=== PATIENT | female | born 1990 | race Caucasian/White ===

== ENCOUNTER 2021-01-29 07:36 | Emergency (ER) | payer BC, OTHER ==
[2021-01-29 07:40] VITALS: BP 154/99; PULSE 70; RESP 18; TEMP 97.1
[2021-01-29] MEDS ORDERED: ACET/COD 300 MG/30 MG STARTER PACK 6 TAB BTL PO STA (07:46)
--- NOTE | 2021-01-29 07:51 | ED ---
ENT HPI - General Chief complaint: Dental/Oral Stated complaint: dental infection Time Seen by Provider: 01/29/21 07:40 Source: patient, RN notes reviewed Mode of arrival: ambulatory Limitations: no limitations - History of Present Illness Initial comments: Patient is a 30-year-old female presenting ED for tooth pain. Patient states that starting yesterday right upper tooth pain started. Patient woke up this morning with increased pressure sinus area to same side. Patient is currently under care with dental, plan is to have all upper teeth removed, with dentures moving forward. Patient states that next appointment is not until the end of March. Patient states no associated pain with any other teeth or lower jaw. Patient reports a decrease in oral intake due to pain. She denies any fever or nausea vomiting at this time. - Related Data Home Medications Medication Instructions Recorded Confirmed Albuterol Inhaler (Mhu) [Ventolin 1 puff INHALATION RT-Q6H PRN 12/07/15 12/07/15 Hfa Inhaler] Buprenorphine HCl/Naloxone HCl 1 film SUBLINGUAL BID 12/07/15 12/07/15 [Suboxone 2 mg-0.5 mg Sl Film] Previous Rx's Medication Instructions Recorded Fluconazole [Diflucan] 150 mg PO ONCE #1 tab 12/07/15 Ibuprofen [Motrin] 600 mg PO Q8HR PRN #20 tab 01/29/21 Penicillin V Potassium [Pen Vee K] 500 mg PO QID #40 tablet 01/29/21 Allergies Allergy/AdvReac Type Severity Reaction Status Date / Time No Known Allergies Allergy Verified 01/29/21 07:40 Review of Systems ROS Statement: Those systems with pertinent positive or pertinent negative responses have been documented in the HPI. ROS Other: All systems not noted in ROS Statement are negative. Past Medical History Additional Past Medical History / Comment(s): headaches History of Any Multi-Drug Resistant Organisms: None Reported Past Surgical History: Section, Tubal Ligation Past Psychological History: No Psychological Hx Reported Smoking Status: Current every day smoker Past Alcohol Use History: None Reported Past Drug Use History: Marijuana General Exam Limitations: no limitations General appearance: alert, in no apparent distress Head exam: Present: atraumatic, normocephalic, normal inspection Eye exam: Present: normal appearance, PERRL, EOMI. Absent: scleral icterus, con junctival injection, periorbital swelling Expanded Mouth exam: Present: normal external inspection Teeth exam: Present: dental caries, fractured tooth # (Right upper cuspid), dental tenderness # Throat exam: normal inspection Neck exam: Present: normal inspection. Absent: tenderness, meningismus, lymphadenopathy Respiratory exam: Present: normal lung sounds bilaterally. Absent: respiratory distress, wheezes, rales, rhonchi, stridor Cardiovascular Exam: Present: regular rate, normal rhythm, normal heart sounds. Absent: systolic murmur, diastolic murmur, rubs, gallop, clicks Neurological exam: Present: alert, oriented X3 Psychiatric exam: Present: normal affect, normal mood Course Vital Signs 01/29/21 07:38 Temperature 97.1 F L Pulse Rate 70 Respiratory 18 Rate Blood Pressure 154/99 O2 Sat by Pulse 99 Oximetry Medical Decision Making - Medical Decision Making Patient presents with right up. Tooth pain. On physical exam of her right cuspid appeared to be fractured with extensive caries. Patient will be placed on antibiotic with Motrin for pain relief. Patient is to follow-up with dentist for further treatment. Return parameters were discussed. Disposition Clinical Impression: Dental caries, Fracture of tooth Disposition: HOME SELF-CARE Instructions (If sedation given, give patient instructions): Toothache (ED) Additional Instructions: Please return to the Emergency Department if symptoms worsen or any other concerns. Prescriptions: Ibuprofen [Motrin] 600 mg PO Q8HR PRN #20 tab PRN Reason: Pain Penicillin V Potassium [Pen Vee K] 500 mg PO QID #40 tablet Is patient prescribed a controlled substance at d/c from ED?: No Referrals: Donnell Camarena MD [Primary Care Provider] - 1-2 days Time of Disposition: 08:02
== END 2021-01-29 08:19 | disposition home or self-care (01) ==
LOC: EC 07:36
DX: K02.9 Dental caries, unspecified (principal); K03.81 Cracked tooth; F17.200 Nicotine dependence, unspecified, uncomplicated; F12.90 Cannabis use, unspecified, uncomplicated; Z79.51 Long term (current) use of inhaled steroids; Z79.1 Long term (current) use of non-steroidal anti-inflammatories (NSAID)
CPT/HCPCS: 99282

== ENCOUNTER 2022-01-26 07:05 | Emergency (ER) | payer OTHER ==
[2022-01-26 07:23] VITALS: BP 150/88; PULSE 78; RESP 18; TEMP 97.8
--- NOTE | 2022-01-26 07:35 | ED ---
Upper Extremity HPI - General Chief Complaint: Extremity Injury, Upper Stated Complaint: RT hand injury Time Seen by Provider: 01/26/22 07:26 Source: patient Mode of arrival: ambulatory Limitations: no limitations - History of Present Illness Initial Comments: 29-year-old female who is predominantly left handed who states she punched a door this morning prior to arrival pain over the dorsal aspect of the right hand especially over the third and fourth metacarpal phalangeal joint area. There is swelling she complains of she states is minimal pain however is no loss of function also has swelling. No pain proximal to this no other injuries reported. She does states she took Motrin prior to MD Complaint: Injury to:: right, hand - Related Data Home Medications Medication Instructions Recorded Confirmed Albuterol Inhaler [Ventolin Hfa 1 puff INHALATION RT-Q6H PRN 12/07/15 12/07/15 Inhaler] Buprenorphine HCl/Naloxone HCl 1 film SUBLINGUAL BID 12/07/15 12/07/15 [Suboxone 2 mg-0.5 mg Sl Film] Previous Rx's Medication Instructions Recorded Fluconazole [Diflucan] 150 mg PO ONCE #1 tab 12/07/15 Ibuprofen [Motrin] 600 mg PO Q8HR PRN #20 tab 01/29/21 Penicillin V Potassium [Pen Vee K] 500 mg PO QID #40 tablet 01/29/21 Allergies Allergy/AdvReac Type Severity Reaction Status Date / Time No Known Allergies Allergy Verified 01/26/22 07:23 Review of Systems ROS Statement: Those systems with pertinent positive or pertinent negative responses have been documented in the HPI. ROS Other: All systems not noted in ROS Statement are negative. Past Medical History Additional Past Medical History / Comment(s): headaches History of Any Multi-Drug Resistant Organisms: None Reported Past Surgical History: Section, Tubal Ligation Past Psychological History: No Psychological Hx Reported Smoking Status: Current every day smoker Past Alcohol Use History: None Reported Past Drug Use History: Marijuana General Exam - General Exam Comments Initial Comments: This is a well-developed well-nourished awake alert oriented 4 female she demonstrates a Rhoda Coma Scale of 15 Limitations: no limitations General appearance: alert, in no apparent distress Head exam: Present: atraumatic, normocephalic, normal inspection Eye exam: Present: normal appearance, PERRL, EOMI. Absent: scleral icterus, conjunctival injection, periorbital swelling Pupils: Present: normal accommodation ENT exam: Present: normal exam Neck exam: Present: normal inspection, full ROM Extremities exam: Present: tenderness, normal capillary refill, other (Somewhat restricted range of motion secondary to the edema dorsal aspect of the third fourth metacarpal phalangeal joints demonstrates edema with ecchymosis no open wound seen. Mild tenderness around the site including the fifth metacarpal. No obvious deformity however no neurovascular deficits no) Back exam: Present: full ROM Neurological exam: Present: alert, oriented X3, CN II-XII intact Psychiatric exam: Present: normal affect, normal mood Skin exam: Present: warm, dry, intact (Stated above). Absent: normal color Course Vital Signs 01/26/22 07:19 Temperature 97.8 F Pulse Rate 78 Respiratory 18 Rate Blood Pressure 150/88 O2 Sat by Pulse 98 Oximetry Medical Decision Making - Medical Decision Making I did discuss findings with the patient and her family patient will be discharged a prescription will be applied we did discuss ice 24-48 hours elevation she does have [id number] pain medication at home. - Radiology Data Radiology results: report reviewed (Imaging reviewed as well as report no evidence of acute bony pathology. Soft tissue edema is noted.), image reviewed Disposition Clinical Impression: Contusion of left hand, Traumatic hematoma of left hand Disposition: HOME SELF-CARE Condition: Good Instructions (If sedation given, give patient instructions): Hematoma (ED), Contusion in Adults (ED) Additional Instructions: Ice 10-20 minutes when necessary 4 times a day 2 days Is patient prescribed a controlled substance at d/c from ED?: No Referrals: Donnell Camarena MD [Primary Care Provider] - 1-2 days Decision Date: 01/26/22 Decision Time: 08:43
--- NOTE | 2022-01-26 08:09 | XR ---
EXAMINATION TYPE: XR hand complete RT DATE OF EXAM: 01/26/2022 COMPARISON: NONE HISTORY: 31-year-old female punching injury right hand TECHNIQUE: 3 views FINDINGS: There is dorsal sided soft tissue swelling overlying the metacarpals and knuckles. No acute fracture, subluxation, or dislocation is seen. IMPRESSION: Dorsal soft tissue swelling. No acute osseous abnormality seen.
--- NOTE | 2022-01-26 08:45 | ED ---
Disposition Clinical Impression: Contusion of right hand, Traumatic hematoma of right hand Disposition: HOME SELF-CARE Condition: Good Instructions (If sedation given, give patient instructions): Contusion in Adults (ED), Hematoma (ED) Additional Instructions: Ice 10-20 minutes when necessary 4 times a day 2 days Is patient prescribed a controlled substance at d/c from ED?: No Referrals: Donnell Camarena MD [Primary Care Provider] - 1-2 days Decision Date: 01/26/22 Decision Time: 08:44
== END 2022-01-26 08:47 | disposition home or self-care (01) ==
LOC: EC 07:05
DX: S60.222A Contusion of left hand, initial encounter (principal); F17.200 Nicotine dependence, unspecified, uncomplicated; F12.90 Cannabis use, unspecified, uncomplicated; X58.XXXA Exposure to other specified factors, initial encounter
CPT/HCPCS: 99283

== ENCOUNTER 2022-07-23 08:54 | Inpatient (IN) | payer MEDICAID, OTHER ==
--- NOTE | 2022-07-23 10:07 | ED ---
General Adult HPI - General Chief complaint: Psychiatric Symptoms Stated complaint: mental health Time Seen by Provider: 07/23/22 09:12 Source: patient, family, RN notes reviewed Mode of arrival: ambulatory Limitations: no limitations - History of Present Illness Initial comments: Patient is a pleasant 31-year-old female presenting to the emergency department with concerns for hearing voices. Symptoms have been occurring for the past one year. Patient is concerned that somebody is out to get her or messing with her devices. Patient is hearing voices through her cellular device. Patient denies feeling paranoid. Patient denies suicidal or homicidal thoughts. No alcohol, rare marijuana use. No new physical complaints. - Related Data Home Medications Medication Instructions Recorded Confirmed Ibuprofen [Motrin Ib] 200 mg PO Q8H PRN 07/23/22 07/23/22 Multivitamins, Thera [Multivitamin 1 tab PO DAILY 07/23/22 07/23/22 (formulary)] Allergies Allergy/AdvReac Type Severity Reaction Status Date / Time No Known Allergies Allergy Verified 07/23/22 11:59 Review of Systems ROS Statement: Those systems with pertinent positive or pertinent negative responses have been documented in the HPI. ROS Other: All systems not noted in ROS Statement are negative. Constitutional: Denies: fever Eyes: Denies: eye pain ENT: Denies: ear pain Respiratory: Denies: cough Cardiovascular: Denies: chest pain Endocrine: Denies: fatigue Gastrointestinal: Denies: abdominal pain Genitourinary: Denies: dysuria Musculoskeletal: Denies: back pain Skin: Denies: rash Neurological: Denies: headache, weakness Psychiatric: Reports: as per HPI, auditory hallucinations Past Medical History Past Medical History: Asthma Additional Past Medical History / Comment(s): headaches History of Any Multi-Drug Resistant Organisms: None Reported Past Surgical History: Section, Tubal Ligation Past Psychological History: No Psychological Hx Reported Smoking Status: Current every day smoker Past Alcohol Use History: Rare Past Drug Use History: Marijuana General Exam Limitations: no limitations General appearance: alert, in no apparent distress Head exam: Present: atraumatic, normocephalic Eye exam: Present: normal appearance Neck exam: Present: normal inspection Respiratory exam: Present: normal lung sounds bilaterally Cardiovascular Exam: Present: regular rate, normal rhythm GI/Abdominal exam: Present: soft. Absent: tenderness Extremities exam: Present: normal inspection Neurological exam: Present: alert Psychiatric exam: Present: normal affect, normal mood Skin exam: Present: normal color Course Vital Signs 07/23/22 09:08 Temperature 98.8 F Pulse Rate 64 Respiratory 20 Rate Blood Pressure 138/70 O2 Sat by Pulse 100 Oximetry Medical Decision Making - Medical Decision Making Was pt. sent in by a medical professional or institution ([facility], SOC ANALYST, urgent care, hospital, or penitentiary...) When possible be specific @ -No Did you speak to anyone other than the patient for history (EMS, parent, family, police, friend...)? What history was obtained from this source @ - is present and helps provide history. Patient feels has heard voices is well however denies this. Did you review nursing and triage notes (agree or disagree)? Why? @ -I reviewed and agree with nursing and triage notes Were old charts reviewed (outside hosp., previous admission, EMS record, old EKG, old radiological studies, urgent care reports/EKG's, penitentiary records)? Report findings @ -No old charts were reviewed Differential Diagnosis (chest pain, altered mental status, abdominal pain women, abdominal pain men, vaginal bleeding, weakness, fever, dyspnea, syncope, headache, dizziness, GI bleed, back pain, seizure, CVA, palpatations, mental health)? @ -not applicable EKG interpreted by me (3pts min.). @ -As above X-rays interpreted by me (1pt min.). @ -None done CT interpreted by me (1pt min.). @ -None done U/S interpreted by me (1pt. min.). @ -None done What testing was considered but not performed or refused? (CT, X-rays, U/S, labs)? Why? @ -None What meds were considered but not given or refused? Why? @ -None Did you discuss the management of the patient with other professionals (professionals i.e. [facility], SOC ANALYST, lab, RT, psych nurse, mental health social worker, transplant nurse practitioner, teacher, chief sustainability officer, casework specialist)? Give summary @ -No Was smoking cessation discussed for >3mins.? @ -Case was discussed with psychiatric nurse who does recommend admission. Was critical care preformed (if so, how long)? @ -No Were there social determinants of health that impacted care today? How? (Homelessness, low income, unemployed, alcoholism, drug addiction, transportation, low edu. Level, literacy, decrease access to med. care, usp, rehab)? @ -No Was there de-escalation of care discussed even if they declined (Discuss DNR or withdrawal of care, Hospice)? DNR status @ -No What co-morbidities impacted this encounter? (DM, HTN, Smoking, COPD, CAD, Cancer, CVA, ARF, Chemo, Hep., AIDS, mental health diagnosis, sleep apnea, morbid obesity)? @ -None Was patient admitted / discharged? Hospital course, mention meds given and route, prescriptions, significant lab abnormalities, going to OR and other pertinent info. @ -Patient will be admitted for psychiatric care. Positive clinical certificate is completed. Undiagnosed new problem with uncertain prognosis? @ -No Drug Therapy requiring intensive monitoring for toxicity (Heparin, Nitro, Insulin, Cardizem)? @ -No Were any procedures done? @ -No Diagnosis/symptom? @ -Acute psychosis Acute, or Chronic, or Acute on Chronic? @ -Acute Uncomplicated (without systemic symptoms) or Complicated (systemic symptoms)? @ -default Side effects of treatment? @ -No Exacerbation, Progression, or Severe Exacerbation? @ -No Poses a threat to life or bodily function? How? (Chest pain, [place], [place], pneumonia, PE, COPD, DKA, ARF, appy, cholecystitis, CVA, Diverticulitis, Homicidal, Suicidal, threat to staff... and all critical care pts) @ -No - Lab Data Lab Results 07/23/22 Range/Units 10:32 Urine Opiates Screen Not Detected (NotDetected) Ur Oxycodone Screen Not Detected (NotDetected) Urine Methadone Screen Not Detected (NotDetected) Ur Propoxyphene Screen Not Detected (NotDetected) Ur Barbiturates Screen Not Detected (NotDetected) U Tricyclic Antidepress Not Detected (NotDetected) Ur Phencyclidine Scrn Not Detected (NotDetected) Ur Amphetamines Screen Not Detected (NotDetected) U Methamphetamines Scrn Not Detected (NotDetected) U Benzodiazepines Scrn Not Detected (NotDetected) Urine Cocaine Screen Not Detected (NotDetected) U Marijuana (THC) Screen Detected H (NotDetected) Disposition Clinical Impression: Psychosis Disposition: TRANSFER TO PSYCH HOSP/UNIT Is patient prescribed a controlled substance at d/c from ED?: No Referrals: Donnell Camarena MD [Primary Care Provider] - 1-2 days Time of Disposition: 13:21
[2022-07-23 11:18] LABS: Amphetamine Screen,Urine Not Detected (NotDetected); Barbiturate Screen,Urine Not Detected (NotDetected); Benzodiazepines Screen,Urine Not Detected (NotDetected); Cocaine Screen,Urine Not Detected (NotDetected); Methadone Screen, Urine Not Detected (NotDetected); Opiate Screen,Urine Not Detected (NotDetected); Oxycodone Screen, Urine Not Detected (NotDetected); Phencyclidine Screen,Urine Not Detected (NotDetected); Tricyclic Antidepressant,Urine Not Detected (NotDetected); Urn Cannabinoid Scrn Detected (NotDetected)
[2022-07-23] MEDS ORDERED: LORazepam 2 MG/ML INJ IM STA (13:06)
[2022-07-23] MEDS ORDERED: NICOTINE 21MG/24HR PATCH TRANSDERM STA (13:27)
[2022-07-23] MEDS ORDERED: MAGNESIUM HYDROXIDE 2,400 MG/10 ML CUP PO PRN (18:13)
[2022-07-23] MEDS ORDERED: ACETAMINOPHEN TAB 325 MG TAB PO PRN (18:13)
[2022-07-23] MEDS ORDERED: MAG HYDROX/AL HYDROX/SIMETH 30 ML CUP PO PRN (18:13)
[2022-07-23] MEDS ORDERED: HALOPERIDOL LACTATE 5 MG/ML 1 ML VIAL IM PRN (18:13)
[2022-07-23] MEDS ORDERED: LORazepam 2 MG/ML INJ IM PRN (18:15)
[2022-07-23] MEDS ORDERED: QUEtiapine 100 MG TAB PO PRN (18:15)
[2022-07-23] MEDS ORDERED: haloperidoL 5 MG TAB PO PRN (18:15)
[2022-07-23 19:14] LABS: Appearance,Urine Clear (Clear); Bilirubin,Urine Negative (Negative); Blood,Urine Small (Negative); Color,Urine Yellow; Glucose,Urine (UA) Negative (Negative); Ketones,Urine Negative (Negative); Leukocyte Esterase,Urine Negative (Negative); Mucus,Urine Rare /hpf; Nitrite,Urine Negative (Negative); PH, Urine 6.5 (5.0-8.0); Protein,Urine Negative (Negative); RBC,Urine <1 /hpf (0-5); Squamous Epithelial Cell,Urine 2 /hpf (0-4); Urobilinogen,Urine <2.0 mg/dL (<2.0); WBC,Urine 1 /hpf (0-5)
[2022-07-23] MEDS: LORazepam 1 MG TAB PO PRN (20:29)
[2022-07-24] MEDS: NICOTINE 14MG/24HR PATCH TRANSDERM SCH (08:58)
[2022-07-24] MEDS: LORazepam 1 MG TAB PO PRN (08:59)
[2022-07-24 10:23] LABS: Basophils % (A) 0 %; Eosinophils # (A) 0.1 k/uL (0-0.7); Eosinophils % (A) 2 %; HGB 13.9 gm/dL (11.4-16.0); Lymphocytes # (A) 1.8 k/uL (1.0-4.8); Lymphocytes % (A) 29 %; MCH 28.6 pg (25.0-35.0); MCHC 32.4 g/dL (31.0-37.0); MCV 88.1 fL (80.0-100.0); Monocytes # (A) 0.3 k/uL (0-1.0); Monocytes % (A) 5 %; Neutrophils # (A) 3.9 k/uL (1.3-7.7); Neutrophils % (A) 62 %; Platelet Count 316 k/uL (150-450); RBC 4.88 m/uL (3.80-5.40); RDW 14.4 % (11.5-15.5); WBC 6.4 k/uL (3.8-10.6)
[2022-07-24 10:34] LABS: ALT 26 U/L (4-34); AST 31 U/L (14-36); African American GFR (CKD) >90 (>60 ml/min/1.73 sqM); Albumin 4.9 g/dL (3.5-5.0); Alkaline Phosphatase 34 U/L (38-126); Anion Gap 11 mmol/L; Blood Urea Nitrogen 10 mg/dL (7-17); Calcium 9.8 mg/dL (8.4-10.2); Carbon Dioxide 25 mmol/L (22-30); Chloride 104 mmol/L (98-107); Glucose 69 mg/dL (74-99); Non-African American GFR(CKD) 83 (>60 ml/min/1.73 sqM); Potassium 4.8 mmol/L (3.5-5.1); Sodium 140 mmol/L (137-145); Total Protein 8.2 g/dL (6.3-8.2)
[2022-07-24 12:20] LABS: Glucose,Whole Blood 89 mg/dL (70-110)
[2022-07-24] MEDS ORDERED: IBUPROFEN 200 MG TAB PO PRN (13:57)
--- NOTE | 2022-07-24 13:58 | P.CONS ---
History of Present Illness - Reason for Consult Consult date: 07/24/22 - History of Present Illness This is a pleasant 31 year old female who is evaluated on the mental health unit. Patient was brought in the hospital for psychiatric evaluation regarding hallucinations that have been ongoing over the last year. Medial record reports that patient has been hearing voices through cellular device and that somebody is out to get her. Patient at the time of evaluation is denying suicidal or homicidal ideations. Patient reports feelings of anxiety, denies any specific stressors or conflict in her life. Patient is and lives with and 2 children ages 10 and 13. States she has been on anxiety medications in the past cannot recall which medication. Patient denies any significant medical history otherwise and has no acute complaints. Does admit to vaping marijuana/nicotine pen daily. No other drug use reported, drinks alcohol occasional. 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 Currently pending psychiatric evaluation. CBC is unremarkable, electrolytes are normal with exception of alk phos slightly elevated at 34, glucose of 89. Urinalysis showing small blood rare mucus. Urine HCG negative. REVIEW OF SYSTEMS: CONSTITUTIONAL: No fever, no malaise, no fatigue. Reports anxiety. HEENT: No recent visual problems or hearing problems. Denied any sore throat. CARDIOVASCULAR: No chest pain, orthopnea, PND, no palpitations, no syncope. PULMONARY: No shortness of breath, no cough, no hemoptysis. GASTROINTESTINAL: No diarrhea, no nausea, no vomiting, no abdominal pain. NEUROLOGICAL: No headaches, no weakness, no numbness. HEMATOLOGICAL: Denies any bleeding or petechiae. GENITOURINARY: Denies any burning micturition, frequency, or urgency. MUSCULOSKELETAL/RHEUMATOLOGICAL: Denies any joint pain, swelling, or any muscle pain. ENDOCRINE: Denies any polyuria or polydipsia. The rest of the 14-point review of systems is negative. PHYSICAL EXAMINATION: GENERAL: The patient is alert and oriented x3, not in any acute distress. Well developed, well nourished. HEENT: Pupils are round and equally reacting to light. EOMI. No scleral icterus. No conjunctival pallor. Normocephalic, atraumatic. No pharyngeal erythema. No thyromegaly. CARDIOVASCULAR: S1 and S2 present. No murmurs, rubs, or gallops. PULMONARY: Chest is clear to auscultation, no wheezing or crackles. ABDOMEN: Soft, nontender, nondistended, normoactive bowel sounds. No palpable organomegaly. MUSCULOSKELETAL: No joint swelling or deformity. EXTREMITIES: No cyanosis, clubbing, or pedal edema. NEUROLOGICAL: Gross neurological examination did not reveal any focal deficits. SKIN: No rashes. Assessment and Plan Assessment Acute psychosis/hallucination Anxiety History of anxiety History of asthma not a current issue Daily marijuana use Occasional alcohol use GI prophylaxis Full Code Plan Continue nicotine patch and resume home medications All other medications per psychiatry Thank you kindly for this consultation we will continue to follow along as needed The impression and plan of care has been dictated by Eliana Velasquez Nurse Practitioner as directed. Dr. Bindu MD I have performed a history and physical examination and medical decision making of this patient, discussed the same with the dictator, and agree with the dictators assessment and plan as written, documented as a scribe. Based on total visit time, I have performed more than 50% of this visit. Past Medical History Past Medical History: Asthma Additional Past Medical History / Comment(s): headaches History of Any Multi-Drug Resistant Organisms: None Reported Past Surgical History: Section, Tubal Ligation Past Anesthesia/Blood Transfusion Reactions: No Reported Reaction Past Psychological History: Anxiety Smoking Status: Current every day smoker Past Alcohol Use History: Rare Past Drug Use History: Marijuana Medications and Allergies Home Medications Medication Instructions Recorded Confirmed Type Ibuprofen [Motrin Ib] 200 mg PO Q8H PRN 07/23/22 07/23/22 History Multivitamins, Thera [Multivitamin 1 tab PO DAILY 07/23/22 07/23/22 History (formulary)] Allergies Allergy/AdvReac Type Severity Reaction Status Date / Time No Known Allergies Allergy Verified 07/23/22 11:59 Physical Exam Vitals: Vital Signs Temp Pulse Pulse Resp BP BP BP 07/24/22 08:58 84 116/73 07/24/22 06:26 96.8 F L 61 16 120/75 07/23/22 20:46 97.1 F L 69 20 131/75 07/23/22 18:13 80 18 130/76 Pulse Ox 07/24/22 08:58 04/18/23 06:26 98 07/23/22 20:46 99 07/23/22 18:13 98 Intake and Output 07/23/22 07/24/22 07/24/22 22:59 06:59 14:59 Other: Weight 65.1 kg Results CBC & Chem 7: 07/24/22 09:15 07/24/22 09:15 Labs: Abnormal Lab Results - Last 24 Hours (Table) 07/23/22 07/24/22 Range/Units 10:32 09:15 Glucose 69 L (74-99) mg/dL Alkaline Phosphatase 34 L (38-126) U/L Urine Blood Small H (Negative) Urine Mucus Rare H (None) /hpf Assessment and Plan Time with Patient: Less than 30
[2022-07-24] MEDS ORDERED: SERTRALINE 25 MG TAB PO STA (14:13)
[2022-07-24 16:17] LABS: Chol/HDL Ratio 1.62 Ratio; LDL Cholesterol,Calculated 35.6 mg/dL (0.0-131.0)
[2022-07-24] MEDS: QUEtiapine 50 MG TAB PO SCH (20:28)
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
[2022-07-25] MEDS: MULTIVITAMINS, THERA 1 EACH TAB PO SCH (08:22)
[2022-07-25] MEDS: SERTRALINE 50 MG TAB PO SCH (08:22)
[2022-07-25] MEDS: NICOTINE 14MG/24HR PATCH TRANSDERM SCH (08:22)
--- NOTE | 2022-07-25 13:57 | P.PN ---
Progress Note - Text Progress Note Date: 07/25/22 Interval History: Patient was seen taking part in activities group today and was directable and agreeable to speak with sign writer hand in the office. Patient continues to be fairly focused on discharge. She states that she is doing a bit better today with regards or anxiety. She states that the Ativan did help her for last night. She states that she was able to sleep fairly last night with the Seroquel. She is not endorsing paranoia today and states that she is doing a bit better. She was less suspicious with brighter and less argumentative. Was not tearful today. She claims that she is going to some groups more specifically the activities group. She has been up for meals. At this time patient denies any suicidal or homical ideations, intent or plan. Patient denies any auditory, visual hallucinations. Patient denies any side effects from the medications and has been compliant with meds. Mental Status Exam: General Appearance: Patient appears to be thin, blonde, stated age is alert, directable, and attempts to cooperate. Less argumentative and less paranoid today. Patient appears to have fair hygiene and grooming. Behavior: Patient is seated without any agitated behavior. Speech: Patient's speech is fluent and nonpressured. Mood/Affect: Patient reports their mood is "ok", affect is congruent and not tearful Suicidality/Homicidality: Patient denies having any homicidal ideation intent or plan. Denies any suicidal ideations intent or plan Perceptions: Patient denies any visual hallucinations and denies any auditory hallucinations Though content/process: Not endorsing delusions, less paranoia today. focused on discharge, more goal oriented. Memory and concentration: AOX3, grossly intact for the purposes of this session Judgment and insight: Improving mildly IMPRESSIONS: psychosis NOS, rule out substance induced cannabis use disorder anxiety disorder unspecified nicotine dependence Plan: -Patient continues to meet criteria for inpatient psychiatric admission for symptom stabilization and safety. Patient has signed adult voluntary form and medication consent and was placed in patient's chart. -Medications: zoloft 50 mg daily for depression/anxiety, seroquel 150 mg qhs for sleep/psychosis. -When necessary Ativan and Haldol for agitation/aggression. -NRT - nicotine patch -SW on board for discharge planning. Encouraged the patient to participate in milieu. Possible discharge tomorrow. She continues to improve, will be going back home. probation worker to reach out to patient's .
[2022-07-25] MEDS: QUEtiapine 50 MG TAB PO SCH (20:07)
[2022-07-26 06:39] VITALS: BP 105/71; PULSE 91; RESP 18; TEMP 98.2
[2022-07-26] MEDS: NICOTINE 14MG/24HR PATCH TRANSDERM SCH (09:01)
[2022-07-26] MEDS: SERTRALINE 50 MG TAB PO SCH (09:02)
[2022-07-26] MEDS: MULTIVITAMINS, THERA 1 EACH TAB PO SCH (09:02)
--- NOTE | 2022-07-26 10:27 | P.DS ---
Providers Date of admission: 07/23/22 17:30 Expected date of discharge: 07/26/22 Attending physician: Norbert Upton MD Consults: 07/23/22 18:13 Consult Physician Routine Consulting Provider: Lesly Cuadra Consult Reason/Comments: H&P and medical Do you want consulting provider notified?: Yes Primary care physician: Nicol Jacobo - Discharge Diagnosis(es) (1) Unspecified psychosis Current Visit: Yes Status: Acute Priority: High (2) Cannabis use disorder Current Visit: Yes Status: Acute Priority: Medium (3) Anxiety disorder Current Visit: Yes Status: Acute Priority: Medium (4) Nicotine dependence Current Visit: Yes Status: Acute Priority: Low Hospital Course: Admission HPI: Admission note was completed by video games storywriter "Patient is a 31 yo female, , lives with her and 2 kids in an apartment, works at the [employer]. Patient presented to the hospital yesterday. Patient was seen in the ER for for psychiatric assessment. patient according to petition was stating that she beleived that the [employer] was sending her messages through her phone and through the TV and that she wanted help with her patanoia and anxiety. patient was admitted involuntarily to the unit and seen by video games storywriter for assessment. she was fairly cooperative and spoke about "people messing with my phone". she beleived that other people can track her location and may want to come after her. she states that she believed people knew where she lived and may harm her because they "threw bottles and garbage on her yard. she did appear to be paranoid and argumentative, poor understanding of her need for treatment and poor insight. she denies and depression at this time. states that her anxiety is "bad". states that she has been sleeping "on and off" lately and appetite is fair. Patient denies any suicidal or homicidal ideations intent or plan. At this time patient denies any auditory or visual hallucinations. Patient denies any flight of ideas racing thoughts and increased in goal directed behavior. Patient admits to using cannabis regularly, cigarettes dailly." Hospital course: Upon admission to the unit patient was directable and agreeable to commence treatment and signed adult voluntary form. Patient got along well with other patients on the unit and followed unit protocol. Patient was compliant with the medications and denied any side effects throughout hospital course. Patient was started on zoloft 50 mg daily for mood/anxiety, seroquel 150 mg qhs for psychosis/sleep. Patient spoke of his stressors and engaged in therapy both group and individual. Patient was also seen by medical team for history and physical exam. Throughout the course of the hospitalization patient gradually improved with regards to mood, anxiety, psychosis/delusions, hallucinations, sleep and returned back to their baseline level of functioning. On the day of discharge patient denied any suicidal or homicidal ideations intent or plan denied any auditory or visual hallucinations. Patient endorsed wanting to live for her health and family. The patient denied any access to guns or weapons. Patient denied any paranoia and did not endorse any delusions. Patient does have a significant history of substance abuse and was counseled on abstaining from all substances including alcohol and marijuana. Patient was offered however declined inpatient substance-abuse rehab. Patient was also counseled on the medications and need for regular compliance and was encouraged to follow-up with their outpatient appointment for mental health and also for primary care. Prior to discharge a family meeting will be arranged by social science instructor to answer any questions and ensure safety upon discharge. Epoxy Coatings Installer spoke with patient's over the phone Joe who claims that he came up to visit and hasn't speaking with patient over the phone and states that patient has been improving and not delusional or paranoid any longer. He states that he got rid of the guns and weapons in the house and it is a safe and supportive environment. We also spoke about the importance of staying sober from cannabis use as it may be a precipitating cause of patient's psychosis and delusions which she agreed with. Mental status exam: General Appearance: Patient appears to be thin, stated age is alert, pleasant, and cooperative. Patient is in no acute distress and has improved hygiene and grooming Behavior: Patient is calmly seated without any agitated behavior. Speech: Patient's speech is fluent and nonpressured. Mood/Affect: Patient reports their mood is "good", affect is congruent and e uthymic. Suicidality/Homicidality: Patient denies having any suicidal or homicidal ideation intent or plan. Perceptions: Patient denies any auditory or visual hallucinations. Though content/process: There is no evidence of any delusional thought content and thought process is linear and goal-directed. Memory and concentration: AOX3, grossly intact for the purposes of this session. Can spell "WORLD" backwards correctly. Judgment and insight: chronically poor, however has improved with guarded prognosis Impression: psychosis unspecified, rule out cannabis-induced psychosis cannabis use disorder anxiety disorder NOS Nicotine dependence Plan: -Continue with discharge today as patient has improved and stabilized psychiatrically and is not currently an imminent threat to herself and/or o thers. Patient will remain at chronically elevated risk for harm to self and/or others due to her impulsivity and substance abuse. -Continue medications: zoloft 50 mg daily for mood/anxiety, seroquel 150 mg daily at bedtime for psychosis/insomnia. -Patient was counseled on the need for medication compliance and appropriate follow-up at mental health and also primary care for medical issues. Patient verbalized understanding and agreed. -Social work to arrange for and conduct family meeting to ensure safety upon discharge and answer any questions/concerns. Social work also to arrange for patients follow up appointments with [facility] for psychiatric care along with follow up with primary care provider. -Patient counseled on abstaining from recreational drugs and marijuana and alcohol. Was informed/educated on the adverse effects on their physical and mental health. Patient verbally agreed and understood. -Patient was instructed to return to the hospital or seek immediate medical care if their psychiatric or medical symptoms do worsen or reoccur. Allergies Allergy/AdvReac Type Severity Reaction Status Date / Time No Known Allergies Allergy Verified 07/23/22 11:59 Laboratory Results WBC 6.4 k/uL (3.8-10.6) 07/24/22 09:15 RBC 4.88 m/uL (3.80-5.40) 07/24/22 09:15 Hgb 13.9 gm/dL (11.4-16.0) 07/24/22 09:15 Hct 43.0 % (34.0-46.0) 07/24/22 09:15 MCV 88.1 fL (80.0-100.0) 07/24/22 09:15 MCH 28.6 pg (25.0-35.0) 07/24/22 09:15 MCHC 32.4 g/dL (31.0-37.0) 07/24/22 09:15 RDW 14.4 % (11.5-15.5) 07/24/22 09:15 Plt Count 316 k/uL (150-450) 07/24/22 09:15 MPV 8.0 07/24/22 09:15 Neutrophils % 62 % 07/24/22 09:15 Lymphocytes % 29 % 07/24/22 09:15 Monocytes % 5 % 07/24/22 09:15 Eosinophils % 2 % 07/24/22 09:15 Basophils % 0 % 07/24/22 09:15 Neutrophils # 3.9 k/uL (1.3-7.7) 07/24/22 09:15 Lymphocytes # 1.8 k/uL (1.0-4.8) 07/24/22 09:15 Monocytes # 0.3 k/uL (0-1.0) 07/24/22 09:15 Eosinophils # 0.1 k/uL (0-0.7) 07/24/22 09:15 Basophils # 0.0 k/uL (0-0.2) 07/24/22 09:15 Sodium 140 mmol/L (137-145) 07/24/22 09:15 Potassium 4.8 mmol/L (3.5-5.1) 07/24/22 09:15 Chloride 104 mmol/L (98-107) 07/24/22 09:15 Carbon Dioxide 25 mmol/L (22-30) 07/24/22 09:15 Anion Gap 11 mmol/L 07/24/22 09:15 BUN 10 mg/dL (7-17) 07/24/22 09:15 Creatinine 0.92 mg/dL (0.52-1.04) 07/24/22 09:15 Est GFR (CKD-EPI)AfAm >90 (>60 ml/min/1.73 sqM) 07/24/22 09:15 Est GFR (CKD-EPI)NonAf 83 (>60 ml/min/1.73 sqM) 07/24/22 09:15 Glucose 69 mg/dL (74-99) L 07/24/22 09:15 POC Glucose (mg/dL) 89 mg/dL (70-110) 07/24/22 12:16 POC Glu Loan Assistant Maria Ines Talavera 07/24/22 12:[address] Glu mg/dL 116 07/24/22 09:15 Hemoglobin A1c 5.7 % (0.0-6.0) 07/24/22 09:15 Calcium 9.8 mg/dL (8.4-10.2) 07/24/22 09:15 Total Bilirubin 1.0 mg/dL (0.2-1.3) 07/24/22 09:15 AST 31 U/L (14-36) 07/24/22 09:15 ALT 26 U/L (4-34) 07/24/22 09:15 Alkaline Phosphatase 34 U/L (38-126) L 07/24/22 09:15 Total Protein 8.2 g/dL (6.3-8.2) 07/24/22 09:15 Albumin 4.9 g/dL (3.5-5.0) 07/24/22 09:15 Triglycerides 43.00 mg/dL (0.00-149.00) 07/24/22 09:15 Cholesterol 115.00 mg/dL (0.00-200.00) 07/24/22 09:15 LDL Cholesterol, Calc 35.6 mg/dL (0.0-131.0) 07/24/22 09:15 VLDL Cholesterol, Calc 8.60 mg/dL (5.00-40.00) 07/24/22 09:15 HDL Cholesterol 70.80 mg/dL (40.00-60.00) H 07/24/22 09:15 Cholesterol/HDL Ratio 1.62 Ratio 07/24/22 09:15 TSH 0.861 mIU/L (0.465-4.680) 07/24/22 09:15 Urine Color Yellow 07/23/22 10:32 Urine Appearance Clear (Clear) 07/23/22 10:32 Urine pH 6.5 (5.0-8.0) 07/23/22 10:32 Ur Specific [place] 1.010 (1.001-1.035) 07/23/22 10:32 Urine Protein Negative (Negative) 07/23/22 10:32 Urine Glucose (UA) Negative (Negative) 07/23/22 10:32 Urine Ketones Negative (Negative) 07/23/22 10:32 Urine Blood Small (Negative) H 07/23/22 10:32 Urine Nitrite Negative (Negative) 07/23/22 10:32 Urine Bilirubin Negative (Negative) 07/23/22 10:32 Urine Urobilinogen <2.0 mg/dL (<2.0) 07/23/22 10:32 Ur Leukocyte Esterase Negative (Negative) 07/23/22 10:32 Urine RBC <1 /hpf (0-5) 07/23/22 10:32 Urine WBC 1 /hpf (0-5) 07/23/22 10:32 Ur Squamous Epith Cells 2 /hpf (0-4) 07/23/22 10:32 Urine Mucus Rare /hpf (None) H 07/23/22 10:32 Urine HCG, Qual Not Detected (Not Detectd) 07/23/22 10:32 Urine Opiates Screen Not Detected (NotDetected) 07/23/22 10:32 Ur Oxycodone Screen Not Detected (NotDetected) 07/23/22 10:32 Urine Methadone Screen Not Detected (NotDetected) 07/23/22 10:32 Ur Propoxyphene Screen Not Detected (NotDetected) 07/23/22 10:32 Ur Barbiturates Screen Not Detected (NotDetected) 07/23/22 10:32 U Tricyclic Antidepress Not Detected (NotDetected) 07/23/22 10:32 Ur Phencyclidine Scrn Not Detected (NotDetected) 07/23/22 10:32 Ur Amphetamines Screen Not Detected (NotDetected) 07/23/22 10:32 U Methamphetamines Scrn Not Detected (NotDetected) 07/23/22 10:32 U Benzodiazepines Scrn Not Detected (NotDetected) 07/23/22 10:32 Urine Cocaine Screen Not Detected (NotDetected) 07/23/22 10:32 U Marijuana (THC) Screen Detected (NotDetected) H 07/23/22 10:32 Coronavirus (PCR) Not Detected (Not Detectd) 07/23/22 13:24 Vital Signs Temp 98.2 F 07/26/22 06:18 Pulse 91 07/26/22 06:18 Resp 18 07/26/22 06:18 BP 105/71 07/26/22 06:18 Pulse Ox 98 07/24/22 06:26 FiO2 Patient Condition at Discharge: Stable Plan - Discharge Summary Discharge Rx Participant: No New Discharge Prescriptions: New QUEtiapine [SEROquel] 150 mg PO HS 30 Days #90 tab Sertraline [Zoloft] 50 mg PO DAILY 30 Days #30 tab Nicotine 14Mg/24Hr Patch [Habitrol] 1 patch TRANSDERM DAILY 14 Days #14 patch Continue Ibuprofen [Motrin Ib] 200 mg PO Q8H PRN PRN Reason: Pain Multivitamins, Thera [Multivitamin (formulary)] 1 tab PO DAILY 30 Days #30 tab Discharge Medication List Ibuprofen [Motrin Ib] 200 mg PO Q8H PRN 07/23/22 [History] Multivitamins, Thera [Multivitamin (formulary)] 1 tab PO DAILY 30 Days #30 tab 07/26/22 [Rx] Nicotine 14Mg/24Hr Patch [Habitrol] 1 patch TRANSDERM DAILY 14 Days #14 patch 07/26/22 [Rx] QUEtiapine [SEROquel] 150 mg PO HS 30 Days #90 tab 07/26/22 [Rx] Sertraline [Zoloft] 50 mg PO DAILY 30 Days #30 tab 07/26/22 [Rx] Follow up Appointment(s)/Referral(s): Donnell Camarena MD [Primary Care Provider] - 1-2 days Activity/Diet/Wound Care/Special Instructions: Avoid the use of street drugs and alcohol. Take all medications as prescribed. When you are in need of refills on your medications, please contact your medical provider and/or outpatient psychiatrist to have this done. Please go to scheduled outpatient appointments for aftercare treatment. If symptoms return or become worse, call the crisis line at and/or go to the nearest emergency room for evaluation. Discharge Disposition: HOME SELF-CARE
== END 2022-07-26 14:51 | disposition home or self-care (01) | DRG 751 ==
LOC: EC 08:54 → 3MHU 17:30
PROVIDERS: ADMIT Psychiatry & Neurology Psychiatry; ATTEND Psychiatry & Neurology Psychiatry
DX: F23 Brief psychotic disorder (principal); F12.90 Cannabis use, unspecified, uncomplicated; F17.200 Nicotine dependence, unspecified, uncomplicated; F41.9 Anxiety disorder, unspecified; G47.00 Insomnia, unspecified; Z79.899 Other long term (current) drug therapy; Z20.822 Contact with and (suspected) exposure to COVID-19
CPT/HCPCS: 80053; 80061; 80306; 81001; 81025; 82075; 83036; 84443; 85025; 87635; 99285

== ENCOUNTER 2024-01-23 16:29 | Emergency (ER) | payer OTHER ==
--- NOTE | 2024-01-23 17:24 | ED ---
Psych HPI - General Source: patient, police Limitations: no limitations <Holland Zuñiga - Last Filed: 01/23/24 17:22> - General Source: patient, police, RN notes reviewed, old records reviewed Limitations: no limitations - History of Present Illness MD Complaint: suicidal ideation -: unknown Associated Psychiatric Symptoms: depression, suicidal ideation History of same: Yes Quality: intermittent Improves With: none Worsens With: none Context: significant life stressor Treatments Prior to Arrival: placed on mental health hold If Self Harm: admits thoughts of self harm <Efren Rosario - Last Filed: 01/28/24 21:20> - General Stated Complaint: Mental health - History of Present Illness Initial Comments: This is a 33-year-old female brought in by PD via court order suicidal ideation. Judgment/court order report states patient has been having suicidal ideation as well as another delusional beliefs. Patient states she is currently undergoing a divorce and having some family issues. Patient states her children are cu rrently being watched by her and are safe. Patient denies history of depression and denies suicidal or homicidal ideation. (Holland Zuñiga) 33 female to ER for psychiatric illness delusional thoughts and suicidal thoughts (Efren Rosario) - Related Data Home Medications Medication Instructions Recorded Confirmed Ibuprofen [Motrin Ib] 200 mg PO Q8H PRN 07/23/22 07/23/22 Previous Rx's Medication Instructions Recorded Multivitamins, Thera [Multivitamin 1 tab PO DAILY 30 Days #30 tab 07/26/22 (formulary)] Nicotine 14Mg/24Hr Patch [Habitrol] 1 patch TRANSDERM DAILY 14 Days 07/26/22 #14 patch QUEtiapine [SEROquel] 150 mg PO HS 30 Days #90 tab 07/26/22 Sertraline [Zoloft] 50 mg PO DAILY 30 Days #30 tab 07/26/22 Allergies Allergy/AdvReac Type Severity Reaction Status Date / Time No Known Allergies Allergy Verified 07/23/22 11:59 Review of Systems ROS Other: All systems not noted in ROS Statement are negative. <Holland Zuñiga - Last Filed: 01/23/24 17:22> ROS Other: All systems not noted in ROS Statement are negative. <Efren Rosario - Last Filed: 01/28/24 21:20> ROS Statement: Those systems with pertinent positive or pertinent negative responses have been documented in the HPI. Past Medical History Past Medical History: Asthma Additional Past Medical History / Comment(s): headaches History of Any Multi-Drug Resistant Organisms: None Reported Past Surgical History: Section, Tubal Ligation Past Anesthesia/Blood Transfusion Reactions: No Reported Reaction Past Psychological History: Anxiety Smoking Status: Current every day smoker Past Alcohol Use History: Rare Past Drug Use History: Marijuana <Holland Zuñiga - Last Filed: 01/23/24 17:22> General Exam <Holland Zuñiga - Last Filed: 01/23/24 17:22> General appearance: alert, in no apparent distress, anxious Head exam: Present: atraumatic, normocephalic, normal inspection Eye exam: Present: normal appearance, PERRL, EOMI. Absent: scleral icterus, conjunctival injection, periorbital swelling ENT exam: Present: normal exam, mucous membranes moist Neck exam: Present: normal inspection. Absent: tenderness, meningismus, lymphadenopathy Respiratory exam: Present: normal lung sounds bilaterally. Absent: respiratory distress, wheezes, rales, rhonchi, stridor Cardiovascular Exam: Present: regular rate, normal rhythm, normal heart sounds. Absent: systolic murmur, diastolic murmur, rubs, gallop, clicks GI/Abdominal exam: Present: soft, normal bowel sounds. Absent: distended, tenderness, guarding, rebound, rigid Extremities exam: Present: normal inspection, full ROM, normal capillary refill. Absent: tenderness, pedal edema, joint swelling, calf tenderness Back exam: Present: normal inspection Neurological exam: Present: alert, oriented X3, CN II-XII intact Psychiatric exam: Present: normal affect, normal mood Skin exam: Present: warm, dry, intact, normal color. Absent: rash <Efren Rosario - Last Filed: 01/28/24 21:20> - General Exam Comments Initial Comments: Visual Physical Exam Vital signs reviewed General: Well-appearing, nontoxic, no acute distress. Head: Normocephalic, atraumatic Eyes: PERRLA, EOMI ENT: Airway patent Chest: Nonlabored breathing Skin: No visual rash, normal skin tone Neuro: Alert and oriented 3 Musculoskeletal: No gross abnormalities (Holland Zuñiga) Course <Efren Rosario - Last Filed: 01/28/24 21:20> Vital Signs 01/23/24 01/23/24 18:35 21:05 Temperature 98.2 F 98.3 F Pulse Rate 76 70 Respiratory 18 18 Rate Blood Pressure 145/89 134/80 O2 Sat by Pulse 100 99 Oximetry - Reevaluation(s) Reevaluation #1: 01/23/24 19:31 Medical records reviewed (Efren Rosario) Reevaluation #2: 01/23/24 19:31 Medically cleared for psychiatric evaluation (Efren Rosario) Medical Decision Making <Holland Zuñiga - Last Filed: 01/23/24 17:22> <Efren Rosario - Last Filed: 01/28/24 21:20> - Medical Decision Making I completed the quick note portion of this chart signed ARELIS Winchester (Holland Zuñiga) 33 female seen eval by psychiatry here in the ER stable for discharge home (Efren Rosario) Disposition <Holland Zuñiga - Last Filed: 01/23/24 17:22> Is patient prescribed a controlled substance at d/c from ED?: No <Efren Rosario - Last Filed: 01/28/24 21:20> Clinical Impression: Unspecified psychosis, Cannabis use disorder, Anxiety disorder Disposition: HOME SELF-CARE Condition: Fair Referrals: None,Stated [Primary Care Provider] - 1-2 days
[2024-01-23 18:45] VITALS: RESP 18
[2024-01-23 21:11] VITALS: BP 134/80; PULSE 70; TEMP 98.3
== END 2024-01-23 21:11 | disposition home or self-care (01) ==
LOC: EC 16:29
CPT/HCPCS: 82075; 99284

== ENCOUNTER 2024-04-08 15:31 | Emergency (ER) | payer OTHER ==
[2024-04-08 15:50] VITALS: RESP 16
--- NOTE | 2024-04-08 16:12 | ED ---
ENT HPI - General Chief complaint: ENT Stated complaint: Ear issue/vertigo Time Seen by Provider: 04/08/24 15:48 Source: patient, RN notes reviewed Mode of arrival: ambulatory Limitations: no limitations - History of Present Illness Initial comments: This is a 33-year-old female complaining of sharp bilateral ear pain (8/10) x 2 weeks. Patient endorses pressure and noise in ears along with recent nasal congestion. Patient denies history of ear infections, recent swimming or [id number] medication use. Denies fever, chills, otorrhea, chest pain, dyspnea, abdominal pain, N/V/D, dizziness. MD complaint: ear pain Onset/Timin -: week(s) Quality: other (Pressure) Consistency: constant Improves with: none Worsens with: none - Related Data Home Medications Medication Instructions Recorded Confirmed Ibuprofen [Motrin Ib] 200 mg PO Q8H PRN 07/23/22 07/23/22 Previous Rx's Medication Instructions Recorded Multivitamins, Thera [Multivitamin 1 tab PO DAILY 30 Days #30 tab 07/26/22 (formulary)] Nicotine 14Mg/24Hr Patch [Habitrol] 1 patch TRANSDERM DAILY 14 Days 07/26/22 #14 patch QUEtiapine [SEROquel] 150 mg PO HS 30 Days #90 tab 07/26/22 Sertraline [Zoloft] 50 mg PO DAILY 30 Days #30 tab 07/26/22 Amoxicillin 875 mg PO Q12HR #14 tablet 04/08/24 Fluticasone Nasal [place] [Flonase 1 spray EA NOSTRIL DAILY #16 gm 04/08/24 Nasal [place]] Pseudoephedrine [Sudafed] 60 mg PO Q6H PRN #30 tablet 04/08/24 Allergies Allergy/AdvReac Type Severity Reaction Status Date / Time No Known Allergies Allergy Verified 04/08/24 15:50 Review of Systems ROS Statement: Those systems with pertinent positive or pertinent negative responses have been documented in the HPI. ROS Other: All systems not noted in ROS Statement are negative. Past Medical History Past Medical History: Asthma Additional Past Medical History / Comment(s): headaches History of Any Multi-Drug Resistant Organisms: None Reported Past Surgical History: Section, Tubal Ligation Past Anesthesia/Blood Transfusion Reactions: No Reported Reaction Past Psychological History: Anxiety Smoking Status: Vaper Past Alcohol Use History: Rare Past Drug Use History: None Reported, Marijuana General Exam Limitations: no limitations General appearance: alert, in no apparent distress Head exam: Present: atraumatic, normocephalic, normal inspection Eye exam: Present: normal appearance, PERRL, EOMI. Absent: scleral icterus, conjunctival injection, periorbital swelling ENT exam: Present: normal exam, mucous membranes moist, other (Positive bilateral air-fluid level without erythema, opacity or bulging) Neck exam: Present: normal inspection. Absent: tenderness, meningismus, lymphadenopathy Respiratory exam: Present: normal lung sounds bilaterally. Absent: respiratory distress, wheezes, rales, rhonchi, stridor Cardiovascular Exam: Present: regular rate, normal rhythm, normal heart sounds. Absent: systolic murmur, diastolic murmur, rubs, gallop, clicks GI/Abdominal exam: Present: soft, normal bowel sounds. Absent: distended, tenderness, guarding, rebound, rigid Extremities exam: Present: normal inspection, full ROM, normal capillary refill. Absent: tenderness, pedal edema, joint swelling, calf tenderness Back exam: Present: normal inspection Neurological exam: Present: alert, oriented X3, CN II-XII intact Psychiatric exam: Present: normal affect, normal mood Skin exam: Present: warm, dry, intact, normal color. Absent: rash Course Vital Signs 04/08/24 15:47 Temperature 98.3 F Pulse Rate 85 Respiratory 16 Rate Blood Pressure 132/85 O2 Sat by Pulse 100 Oximetry Medical Decision Making - Medical Decision Making Was pt. sent in by a medical professional or institution (, PA, LOOPER OPERATOR, urgent care, hospital, or usp...) When possible be specific @ -[No] Did you speak to anyone other than the patient for history (EMS, parent, family, police, friend...)? What history was obtained from this source @ -[No] Did you review nursing and triage notes (agree or disagree)? Why? @ -[I reviewed and agree with nursing and triage notes] Were old charts reviewed (outside hosp., previous admission, EMS record, old EKG, old radiological studies, urgent care reports/EKG's, usp records)? Report findings @ -[No old charts were reviewed] Differential Diagnosis (chest pain, altered mental status, abdominal pain women, abdominal pain men, vaginal bleeding, weakness, fever, dyspnea, syncope, headache, dizziness, GI bleed, back pain, seizure, CVA, palpatations, mental health, musculoskeletal)? @ -[not applicable] EKG interpreted by me (3pts min.). @ -Not done X-rays interpreted by me (1pt min.). @ -[None done] CT interpreted by me (1pt min.). @ -[None done] U/S interpreted by me (1pt. min.). @ -[None done] What testing was considered but not performed or refused? (CT, X-rays, U/S, labs)? Why? @ -[None] What meds were considered but not given or refused? Why? @ -[None] Did you discuss the management of the patient with other professionals (professionals i.e. , PA, LOOPER OPERATOR, lab, RT, psych nurse, licensed social worker, blade boner, teacher, signals officer, complex case manager)? Give summary @ -[No] Was smoking cessation discussed for >3mins.? @ -[No] Was critical care preformed (if so, how long)? @ -[No] Were there social determinants of health that impacted care today? How? (Homelessness, low income, unemployed, alcoholism, drug addiction, transportation, low edu. Level, literacy, decrease access to med. care, retirement, rehab)? @ -[No] Was there de-escalation of care discussed even if they declined (Discuss DNR or withdrawal of care, Hospice)? DNR status @ -[No] What co-morbidities impacted this encounter? (DM, HTN, Smoking, COPD, CAD, Cancer, CVA, ARF, Chemo, Hep., AIDS, mental health diagnosis, sleep apnea, morbid obesity)? @ -[None] Was patient admitted / discharged? Hospital course, mention meds given and route, prescriptions, significant lab abnormalities, going to OR and other pertinent info. @ -[hospital course] Undiagnosed new problem with uncertain prognosis? @ -[No] Drug Therapy requiring intensive monitoring for toxicity (Heparin, Nitro, Insulin, Cardizem)? @ -[No] Were any procedures done? @ -[No] Diagnosis/symptom? @ -Serous otitis media Acute, or Chronic, or Acute on Chronic? @ -Acute Uncomplicated (without systemic symptoms) or Complicated (systemic symptoms)? @ -Uncomplicated Side effects of treatment? @ -[No] Exacerbation, Progression, or Severe Exacerbation? @ -[No] Poses a threat to life or bodily function? How? (Chest pain, [place], MD, pneumonia, PE, COPD, DKA, ARF, appy, cholecystitis, CVA, Diverticulitis, Homicidal, Suicidal, threat to staff... and all critical care pts) @ -[No] Disposition Clinical Impression: Acute serous otitis media, Otitis media Disposition: HOME SELF-CARE Condition: Good Instructions (If sedation given, give patient instructions): Fluid In The Ear (Serous Otitis Media) (ED) Prescriptions: Amoxicillin 875 mg PO Q12HR #14 tablet Fluticasone Nasal [place] [Flonase Nasal [place]] 1 spray EA NOSTRIL DAILY #16 gm Pseudoephedrine [Sudafed] 60 mg PO Q6H PRN #30 tablet PRN Reason: Congestion Is patient prescribed a controlled substance at d/c from ED?: No Referrals: None,Stated [Primary Care Provider] - 1-2 days Time of Disposition: 16:49
[2024-04-08 17:13] VITALS: BP 120/73; PULSE 88; TEMP 98.7
== END 2024-04-08 17:12 | disposition home or self-care (01) ==
LOC: EC 15:31
DX: H65.03 Acute serous otitis media, bilateral (principal); F17.290 Nicotine dependence, other tobacco product, uncomplicated
CPT/HCPCS: 99284

== ENCOUNTER 2024-09-17 01:56 | Emergency (ER) | payer OTHER ==
--- NOTE | 2024-09-17 03:39 | ED ---
General Adult HPI - General Source: patient, RN notes reviewed, old records reviewed Mode of arrival: ambulatory Limitations: no limitations <Joe Garay - Last Filed: 09/17/24 05:32> <Donte Warner - Last Filed: 09/17/24 08:43> - General Chief complaint: Psychiatric Symptoms Stated complaint: dizzy Time Seen by Provider: 09/17/24 02:22 - History of Present Illness Initial comments: 33-year-old female presenting for evaluation of palpitation and possible psychiatric evaluation patient had told triage nurse that there were people chasing her and cars were swerving at her. There was concern for paranoia in this patient. She denies suicidal or homicidal ideation. Patient says denies nausea or vomiting. Denies fever. Denies cough or dyspnea. No reported auditory or visual hallucination. (Joe Garay) - Related Data Home Medications Medication Instructions Recorded Confirmed Ibuprofen [Motrin Ib] 200 mg PO Q8H PRN 07/23/22 07/23/22 Previous Rx's Medication Instructions Recorded Multivitamins, Thera [Multivitamin 1 tab PO DAILY 30 Days #30 tab 07/26/22 (formulary)] Nicotine 14Mg/24Hr Patch [Habitrol] 1 patch TRANSDERM DAILY 14 Days 07/26/22 #14 patch QUEtiapine [SEROquel] 150 mg PO HS 30 Days #90 tab 07/26/22 Sertraline [Zoloft] 50 mg PO DAILY 30 Days #30 tab 07/26/22 Amoxicillin 875 mg PO Q12HR #14 tablet 04/08/24 Fluticasone Nasal [place] [Flonase 1 spray EA NOSTRIL DAILY #16 gm 04/08/24 Nasal [place]] Pseudoephedrine [Sudafed] 60 mg PO Q6H PRN #30 tablet 04/08/24 Allergies Allergy/AdvReac Type Severity Reaction Status Date / Time No Known Allergies Allergy Verified 09/17/24 02:05 Review of Systems ROS Other: All systems not noted in ROS Statement are negative. <Joe Garay - Last Filed: 09/17/24 05:32> ROS Other: All systems not noted in ROS Statement are negative. <Donte Warner - Last Filed: 09/17/24 08:43> ROS Statement: Those systems with pertinent positive or pertinent negative responses have been documented in the HPI. Past Medical History Past Medical History: Asthma Additional Past Medical History / Comment(s): headaches History of Any Multi-Drug Resistant Organisms: None Reported Past Surgical History: Section, Tubal Ligation Past Anesthesia/Blood Transfusion Reactions: No Reported Reaction Past Psychological History: Anxiety Smoking Status: Vaper Past Alcohol Use History: Rare Past Drug Use History: Marijuana <Joe Garay - Last Filed: 09/17/24 05:32> General Exam Limitations: no limitations General appearance: alert, in no apparent distress Head exam: Present: atraumatic, normocephalic Eye exam: Present: normal appearance, PERRL ENT exam: Present: normal exam Neck exam: Present: normal inspection. Absent: tenderness, meningismus Respiratory exam: Present: normal lung sounds bilaterally. Absent: respiratory distress, wheezes Cardiovascular Exam: Present: regular rate, normal rhythm GI/Abdominal exam: Present: soft. Absent: distended, tenderness Extremities exam: Present: normal inspection, normal capillary refill Neurological exam: Present: alert, oriented X3, CN II-XII intact. Absent: motor sensory deficit Psychiatric exam: Absent: homicidal ideation, suicidal ideation Skin exam: Present: warm, dry, intact. Absent: cyanosis, diaphoretic <Joe Garay - Last Filed: 09/17/24 05:32> Course Vital Signs 09/17/24 09/17/24 02:05 06:38 Temperature 97.7 F 97.8 F Pulse Rate 65 71 Respiratory 18 18 Rate Blood Pressure 118/65 110/69 O2 Sat by Pulse 100 100 Oximetry Medical Decision Making - Lab Data Result diagrams: 09/17/24 03:34 09/17/24 03:34 <Joe Garay - Last Filed: 09/17/24 05:32> - Lab Data Result diagrams: 09/17/24 03:34 09/17/24 03:34 <Donte Warner - Last Filed: 09/17/24 08:43> - Medical Decision Making Was pt. sent in by a medical professional or institution (, PA, RN PERINATAL, urgent care, hospital, or senior care...) When possible be specific @ -No Did you speak to anyone other than the patient for history (EMS, parent, family, police, friend...)? What history was obtained from this source @ -No Did you review nursing and triage notes (agree or disagree)? Why? @ -I reviewed and agree with nursing and triage notes Were old charts reviewed (outside hosp., previous admission, EMS record, old EKG, old radiological studies, urgent care reports/EKG's, senior care records)? Report findings @ -No old charts were reviewed Differential Mental Health Depression, anxiety, bipolar, psychosis, schizophrenia, borderline personality, situational depression, adjustment disorder, behavioral disorder, brain tumor, malingering, substance abuse, encephalopathy, medication reaction, dementia, hypothyroidism, degenerative neurologic disorder, lupus.... This is not meant to be all-inclusive list] EKG interpreted by me (3pts min.). @ -EKG: Sinus bradycardia rate of 55, incomplete right bundle branch block, [place] interval 157, QRS duration 91, QTc 418 X-rays interpreted by me (1pt min.). @ -None done CT interpreted by me (1pt min.). @ -None done U/S interpreted by me (1pt. min.). @ -None done What testing was considered but not performed or refused? (CT, X-rays, U/S, labs)? Why? @ -None What meds were considered but not given or refused? Why? @ -None Did you discuss the management of the patient with other professionals (professionals i.e. , PA, RN PERINATAL, lab, RT, psych nurse, social security benefits interviewer, research and development researcher, teacher, police liaison officer, egg caser)? Give summary @ -No Was smoking cessation discussed for >3mins.? @ -No Was critical care preformed (if so, how long)? @ -No Were there social determinants of health that impacted care today? How? (Homelessness, low income, unemployed, alcoholism, drug addiction, transportation, low edu. Level, literacy, decrease access to med. care, alf, rehab)? @ -No Was there de-escalation of care discussed even if they declined (Discuss DNR or withdrawal of care, Hospice)? DNR status @ -No What co-morbidities impacted this encounter? (DM, HTN, Smoking, COPD, CAD, Cancer, CVA, ARF, Chemo, Hep., AIDS, mental health diagnosis, sleep apnea, morbid obesity)? @ -None Was patient admitted / discharged? Hospital course, mention meds given and route, prescriptions, significant lab abnormalities, going to OR and other pertinent info. @ -[Patient medically cleared awaiting EPS evaluation. (Joe Garay) Patient signed out to me pending involuntary EPS evaluation. Was medically cleared by the previous provider. Is not a danger to self or others. Denies suicidal or homicidal ideations, times complaints. Denies any visual or auditory elucidation's. The front desk specialist is concerned that she may have been having some delusions but patient states that this is untrue. She would like to go home and no longer wishes to wait for EPS. As she is not a danger to herself or others at this time and she is coherent and can make her own medical decisions, I believe this is reasonable. She is not potation. Patient be disch arged home at this time. She will follow-up with her PCP. I instructed the patient to follow up with their PCP in the next 1-3 days. I explained that the patient should return to the emergency department if they experience any worsening symptoms. Strict return precautions were discussed with the patient. The patient expressed understanding of these instructions. I answered all questions that the patient had. The patient was discharged home in good condition with their prescriptions and follow up information. Diagnosis/symptom? @ -Lightheadedness Acute, or Chronic, or Acute on Chronic? @ -Acute Uncomplicated (without systemic symptoms) or Complicated (systemic symptoms)? @ -Uncomplicated Side effects of treatment? @ -None Exacerbation, Progression, or Severe Exacerbation] @ -No Poses a threat to life or bodily function? @ -Unlikely at this time (Donte Warner) - Lab Data Lab Results 09/17/24 09/17/24 09/17/24 Range/Units 02:50 02:50 03:34 WBC 9.51 (4.50-10.00) 10*3/uL RBC 4.43 (4.10-5.20) 10*6/uL Hgb 11.9 L (12.0-15.0) g/dL Hct 36.5 L (37.2-46.3) % MCV 82.4 (80.0-97.0) fL MCH 26.9 L (27.0-32.0) pg MCHC 32.6 (32.0-37.0) g/dL Plt Count 334 (140-440) 10*3/uL MPV 9.9 (9.5-12.2) fL Immature Gran % (Auto) 0.2 % Neutrophils % 65.9 % Lymphocytes % 27.2 % Monocytes % 4.6 % Eosinophils % 1.6 % Basophils % 0.5 % Immature Gran # 0.02 (0.00-0.04) 10*3/uL Neutrophils # 6.26 (1.80-7.70) 10*3/uL Lymphocytes # 2.59 (0.90-5.00) 10*3/uL Monocytes # 0.44 (0.20-1.00) 10*3/uL Eosinophils # 0.15 (0.04-0.35) 10*3/uL Basophils # 0.05 (0.00-0.10) 10*3/uL Sodium (137-145) mmol/L Potassium (3.5-5.1) mmol/L Chloride (98-107) mmol/L Carbon Dioxide (22-30) mmol/L Anion Gap mmol/L BUN (7-17) mg/dL Creatinine (0.52-1.04) mg/dL Est GFR (CKD-EPI)AfAm (>60 ml/min/1.73 sqM) Est GFR (CKD-EPI)NonAf (>60 ml/min/1.73 sqM) Glucose (74-99) mg/dL Calcium (8.4-10.2) mg/dL Total Bilirubin (0.2-1.3) mg/dL AST (14-36) U/L ALT (4-34) U/L Alkaline Phosphatase (38-126) U/L Total Protein (6.3-8.2) g/dL Albumin (3.5-5.0) g/dL Urine Color Colorless Urine Appearance Clear (Clear) Urine pH 6.0 (5.0-8.0) Ur Specific [place] 1.003 (1.001-1.035) Urine Protein Negative (Negative) Urine Glucose (UA) Negative (Negative) Urine Ketones Negative (Negative) Urine Blood Negative (Negative) Urine Nitrite Negative (Negative) Urine Bilirubin Negative (Negative) Urine Urobilinogen <2.0 (<2.0) mg/dL Ur Leukocyte Esterase Negative (Negative) Urine Opiates Screen Not Detected (NotDetected) Ur Oxycodone Screen Not Detected (NotDetected) Urine Methadone Screen Not Detected (NotDetected) Ur Barbiturates Screen Not Detected (NotDetected) U Tricyclic Antidepress Not Detected (NotDetected) Ur Phencyclidine Scrn Not Detected (NotDetected) Ur Amphetamines Screen Not Detected (NotDetected) U Methamphetamines Scrn Not Detected (NotDetected) U Benzodiazepines Scrn Not Detected (NotDetected) Urine Cocaine Screen Not Detected (NotDetected) U Marijuana (THC) Screen Not Detected (NotDetected) 09/17/24 Range/Units 03:34 WBC (4.50-10.00) 10*3/uL RBC (4.10-5.20) 10*6/uL Hgb (12.0-15.0) g/dL Hct (37.2-46.3) % MCV (80.0-97.0) fL MCH (27.0-32.0) pg MCHC (32.0-37.0) g/dL Plt Count (140-440) 10*3/uL MPV (9.5-12.2) fL Immature Gran % (Auto) % Neutrophils % % Lymphocytes % % Monocytes % % Eosinophils % % Basophils % % Immature Gran # (0.00-0.04) 10*3/uL Neutrophils # (1.80-7.70) 10*3/uL Lymphocytes # (0.90-5.00) 10*3/uL Monocytes # (0.20-1.00) 10*3/uL Eosinophils # (0.04-0.35) 10*3/uL Basophils # (0.00-0.10) 10*3/uL Sodium 135 L (137-145) mmol/L Potassium 4.0 (3.5-5.1) mmol/L Chloride 103 (98-107) mmol/L Carbon Dioxide 23 (22-30) mmol/L Anion Gap 9 mmol/L BUN 13 (7-17) mg/dL Creatinine 0.79 (0.52-1.04) mg/dL Est GFR (CKD-EPI)AfAm >90 (>60 ml/min/1.73 sqM) Est GFR (CKD-EPI)NonAf >90 (>60 ml/min/1.73 sqM) Glucose 89 (74-99) mg/dL Calcium 9.4 (8.4-10.2) mg/dL Total Bilirubin 0.9 (0.2-1.3) mg/dL AST 20 (14-36) U/L ALT 13 (4-34) U/L Alkaline Phosphatase 27 L (38-126) U/L Total Protein 6.1 L (6.3-8.2) g/dL Albumin 3.9 (3.5-5.0) g/dL Urine Color Urine Appearance (Clear) Urine pH (5.0-8.0) Ur Specific [place] (1.001-1.035) Urine Protein (Negative) Urine Glucose (UA) (Negative) Urine Ketones (Negative) Urine Blood (Negative) Urine Nitrite (Negative) Urine Bilirubin (Negative) Urine Urobilinogen (<2.0) mg/dL Ur Leukocyte Esterase (Negative) Urine Opiates Screen (NotDetected) Ur Oxycodone Screen (NotDetected) Urine Methadone Screen (NotDetected) Ur Barbiturates Screen (NotDetected) U Tricyclic Antidepress (NotDetected) Ur Phencyclidine Scrn (NotDetected) Ur Amphetamines Screen (NotDetected) U Methamphetamines Scrn (NotDetected) U Benzodiazepines Scrn (NotDetected) Urine Cocaine Screen (NotDetected) U Marijuana (THC) Screen (NotDetected) Disposition <Joe Garay - Last Filed: 09/17/24 05:32> Is patient prescribed a controlled substance at d/c from ED?: No Time of Disposition: 08:40 <Donte Warner - Last Filed: 09/17/24 08:43> Clinical Impression: Light headedness Disposition: HOME SELF-CARE Condition: Good Instructions (If sedation given, give patient instructions): Lightheadedness (ED) Referrals: Armando Robledo MD [Primary Care Provider] - 1-2 days
[2024-09-17 03:50] LABS: Basophils # (A) 0.05 10*3/uL (0.00-0.10); Basophils % (A) 0.5 %; Eosinophils # (A) 0.15 10*3/uL (0.04-0.35); Eosinophils % (A) 1.6 %; HCT 36.5 % (37.2-46.3); HGB 11.9 g/dL (12.0-15.0); Lymphocytes # (A) 2.59 10*3/uL (0.90-5.00); Lymphocytes % (A) 27.2 %; MCH 26.9 pg (27.0-32.0); MCHC 32.6 g/dL (32.0-37.0); MCV 82.4 fL (80.0-97.0); Mean Platelet Volume 9.9 fL (9.5-12.2); Monocytes # (A) 0.44 10*3/uL (0.20-1.00); Monocytes % (A) 4.6 %; Neutrophils # (A) 6.26 10*3/uL (1.80-7.70); Neutrophils % (A) 65.9 %; Platelet Count 334 10*3/uL (140-440); RBC 4.43 10*6/uL (4.10-5.20); RDW 14.5 % (11.5-14.5); WBC 9.51 10*3/uL (4.50-10.00)
[2024-09-17 03:54] LABS: Amphetamine Screen,Urine Not Detected (NotDetected); Barbiturate Screen,Urine Not Detected (NotDetected); Benzodiazepines Screen,Urine Not Detected (NotDetected); Cocaine Screen,Urine Not Detected (NotDetected); Methadone Screen, Urine Not Detected (NotDetected); Opiate Screen,Urine Not Detected (NotDetected); Oxycodone Screen, Urine Not Detected (NotDetected); Phencyclidine Screen,Urine Not Detected (NotDetected); Tricyclic Antidepressant,Urine Not Detected (NotDetected); Urn Cannabinoid Scrn Not Detected (NotDetected)
[2024-09-17 04:17] LABS: ALT 13 U/L (4-34); AST 20 U/L (14-36); African American GFR (CKD) >90 (>60 ml/min/1.73 sqM); Albumin 3.9 g/dL (3.5-5.0); Alkaline Phosphatase 27 U/L (38-126); Anion Gap 9 mmol/L; Blood Urea Nitrogen 13 mg/dL (7-17); Calcium 9.4 mg/dL (8.4-10.2); Carbon Dioxide 23 mmol/L (22-30); Chloride 103 mmol/L (98-107); Glucose 89 mg/dL (74-99); Non-African American GFR(CKD) >90 (>60 ml/min/1.73 sqM); Sodium 135 mmol/L (137-145); Total Bilirubin 0.9 mg/dL (0.2-1.3); Total Protein 6.1 g/dL (6.3-8.2)
[2024-09-17 08:12] LABS: Appearance,Urine Clear (Clear); Bilirubin,Urine Negative (Negative); Blood,Urine Negative (Negative); Color,Urine Colorless; Glucose,Urine (UA) Negative (Negative); Ketones,Urine Negative (Negative); Leukocyte Esterase,Urine Negative (Negative); Nitrite,Urine Negative (Negative); Protein,Urine Negative (Negative); Specific Gravity,Urine 1.003 (1.001-1.035); Urobilinogen,Urine <2.0 mg/dL (<2.0)
[2024-09-17 08:50] VITALS: BP 107/69; PULSE 60; RESP 16; TEMP 97.9
== END 2024-09-17 08:49 | disposition home or self-care (01) ==
LOC: EC 01:56
DX: R42 Dizziness and giddiness (principal); F17.290 Nicotine dependence, other tobacco product, uncomplicated
CPT/HCPCS: 36415; 80053; 80306; 81003; 82075; 85025; 93005; 99285